=== PATIENT | female | born 1975 | race Caucasian/White ===

== ENCOUNTER → 2018-08-16 | Outpatient (CLI) | payer OTHER | LOC: FIMAGING 12:55 | PROVIDERS: ATTEND Family Medicine | DX: R10.11 Right upper quadrant pain (principal); K59.00 Constipation, unspecified ==

== ENCOUNTER → 2018-08-17 | Outpatient (CLI) | payer OTHER | LOC: FIMAGING 07:51 | PROVIDERS: ATTEND Family Medicine | DX: D25.1 Intramural leiomyoma of uterus (principal); Z97.5 Presence of (intrauterine) contraceptive device; R35.0 Frequency of micturition ==